=== PATIENT | male | born 1970 | race Two or more races ===

== ENCOUNTER 2017-06-10 19:40 | Inpatient (IN) | payer OTHER ==
[2017-06-10 20:16] VITALS: BMI 18.5
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
[2017-06-10] MEDS ORDERED: LOPERAMIDE HCL 2 MG CAPSULE PO PRN (20:48)
[2017-06-10] MEDS ORDERED: guaiFENesin/D-METHORPHAN HB 10 ML UNIT-DOSE CUPS PO PRN (20:48)
[2017-06-10] MEDS ORDERED: MENTHOL/PHENOL 1 EACH UD MM PRN (20:48)
[2017-06-10] MEDS ORDERED: IBUPROFEN 400 MG TABLET (FP) PO PRN (20:48)
[2017-06-10] MEDS ORDERED: NICOTINE POLACRILEX 2 MG GUM BC PRN (20:48)
[2017-06-10] MEDS ORDERED: ACETAMINOPHEN 325 MG TABLET (FP) PO PRN (20:48)
[2017-06-10] MEDS ORDERED: chlordiazePOXIDE HCL 25 MG CAPSULE PO ONE (20:48)
[2017-06-10] MEDS ORDERED: hydrOXYzine PAMOATE 50 MG CAPSULE (FP) PO PRN (20:48)
[2017-06-10] MEDS ORDERED: MAGNESIUM HYDROX 2400MG/30ML ORAL SUSPENSION 30 ML CUP PO PRN (20:48)
[2017-06-10] MEDS ORDERED: MAG HYDROX/AL HYDROX/SIMETH 30 ML UNIT-DOSE CUP PO PRN (20:48)
[2017-06-10] MEDS ORDERED: P-EPHED 60MG/TRIPROLIDI 2.5MG TABLET PO PRN (20:48)
[2017-06-10] MEDS ORDERED: chlordiazePOXIDE HCL 25 MG CAPSULE PO PRN (20:48)
[2017-06-10] MEDS ORDERED: MAGNESIUM CITRATE 300 ML BOTTLE PO PRN (20:48)
[2017-06-10] MEDS ORDERED: diphenhydrAMINE HCL 50 MG CAPSULE PO PRN (20:48)
[2017-06-10] MEDS: chlordiazePOXIDE HCL 25 MG CAPSULE PO SCH (22:42)
[2017-06-10] MEDS: THIAMINE HCL 100 MG TABLET (FP) PO SCH (22:44)
[2017-06-10 23:09] LABS: URINE APPEARANCE CLEAR; URINE BILIRUBIN NEGATIVE (NEGATIVE); URINE BLOOD NEGATIVE (NEGATIVE); URINE COLOR YELLOW; URINE GLUCOSE (UA) NEGATIVE (NEGATIVE); URINE KETONE NEGATIVE (NEGATIVE); URINE LEUK ESTERASE NEGATIVE (NEGATIVE); URINE NITRITE NEGATIVE (NEGATIVE); URINE PROTEIN NEGATIVE (NEGATIVE)
[2017-06-11] MEDS: chlordiazePOXIDE HCL 25 MG CAPSULE PO SCH ×4 (06:35→22:39)
[2017-06-11] MEDS: NICOTINE 21 MG/24 HOURS TOPICAL PATCH TD SCH (10:59)
[2017-06-11] MEDS: PRENATAL VITAMINS W/ FOLIC ACID TABLET (FP) PO SCH (10:59)
--- NOTE | 2017-06-11 12:12 | PN ---
[facility] CIWA - CIWA Score Nausea/Vomitin Muscle Tremors: 4-Moderate,w/Arms Extend Anxiety: 2 Agitation: 1-Slight > Activity Paroxysmal Sweats: 3 Orientation: 0-Oriented Tacttile Disturbances: 0-None Auditory Disturbances: 2-Mild Harshness/Frighten Visual Disturbances: 3-Moderate Sensitivity Headache: 0-None Present CIWA-Ar Total Score: 17 BHS Progress Note (SOAP) Subjective: Tremors, Sweating, Stomach Cramping, Diarrhea, Body Aches. Objective: PT. A & O X 3, OBSERVED AMBULATING ON UNIT. NO ACUTE DISTRESS. PT. DENIES CHEST PAIN. 06/11/17 12:10 Vital Signs Temperature 96.6 F L 06/11/17 09:50 Pulse Rate 52 L 06/11/17 09:50 Respiratory Rate 18 06/11/17 09:50 Blood Pressure 107/65 06/11/17 09:50 O2 Sat by Pulse Oximetry (%) Laboratory Tests 06/10/17 22:40 Urine Color Yellow Urine Appearance Clear Urine pH 6.0 Ur Specific [place] 1.015 Urine Protein Negative Urine Glucose (UA) Negative Urine Ketones Negative Urine Blood Negative Urine Nitrite Negative Urine Bilirubin Negative Urine Urobilinogen 2.0 Ur Leukocyte Esterase Negative LABS NOTED. PATIENT REFUSED TO HAVE CBC, CMP, RPR, HIV, AND HCV LAB TESTS DRAWN. WILL ENCOURAGE HIM TO RECONSIDER. 06/11/17 12:11 Assessment: 06/11/17 12:10 WITHDRAWAL SYMPTOMS. Plan: CONTINUE DETOX.
--- NOTE | 2017-06-11 12:44 | EKG ---
Test Reason : Blood Pressure : / mmHG Vent. Rate : 046 BPM Atrial Rate : 046 BPM P-R Int : 180 ms QRS Dur : 132 ms QT Int : 452 ms P-R-T Axes : 076 094 078 degrees QTc Int : 395 ms SINUS BRADYCARDIA RIGHT BUNDLE BRANCH BLOCK ABNORMAL ECG NO PREVIOUS ECGS AVAILABLE Confirmed by DILAN SMALLS, MEGHAN ([id number]) on 06/11/2017 12:43:54 PM Referred By: Confirmed By:MEGHAN KONG MD
--- NOTE | 2017-06-11 15:10 | CONSULT ---
[facility] Psychiatric Consult - Data Date of interview: 06/11/17 Admission source: [facility] Identifying data: Patient refused psychiatric evaluation.
[2017-06-11] MEDS: THIAMINE HCL 100 MG TABLET (FP) PO SCH (22:39)
[2017-06-12] MEDS: chlordiazePOXIDE HCL 25 MG CAPSULE PO SCH ×3 (05:45→17:25)
[2017-06-12] MEDS: PRENATAL VITAMINS W/ FOLIC ACID TABLET (FP) PO SCH (10:31)
[2017-06-12] MEDS: NICOTINE 21 MG/24 HOURS TOPICAL PATCH TD SCH (10:31)
--- NOTE | 2017-06-12 14:28 | PN ---
[facility] CIWA - CIWA Score Nausea/Vomitin-No Nausea/No Vomiting Muscle Tremors: 4-Moderate,w/Arms Extend Anxiety: 5 Agitation: 1-Slight > Activity Paroxysmal Sweats: 2 Orientation: 0-Oriented Tacttile Disturbances: 2-Mild Itch/Numbness/Burn Auditory Disturbances: 2-Mild Harshness/Frighten Visual Disturbances: 2-Mild Sensitivity Headache: 0-None Present CIWA-Ar Total Score: 18 S Progress Note (SOAP) Subjective: Tremors, Anxious, Fatigue. Objective: PT. A & O X 3, OBSERVED AMBULATING ON UNIT. NO ACUTE DISTRESS. 06/12/17 14:23 Vital Signs Temperature 98.1 F 06/12/17 09:17 Pulse Rate 68 06/12/17 09:17 Respiratory Rate 18 06/12/17 09:17 Blood Pressure 107/61 06/12/17 09:17 O2 Sat by Pulse Oximetry (%) Laboratory Tests 06/10/17 22:40 Urine Color Yellow Urine Appearance Clear Urine pH 6.0 Ur Specific [place] 1.015 Urine Protein Negative Urine Glucose (UA) Negative Urine Ketones Negative Urine Blood Negative Urine Nitrite Negative Urine Bilirubin Negative Urine Urobilinogen 2.0 Ur Leukocyte Esterase Negative UA RESULTS NOTED. PATIENT REFUSED TO HAVE OTHER ADMISSION LABS DRAWN, DESPITE ENCOURAGEMENT FROM [facility]. Assessment: 06/12/17 14:25 WITHDRAWAL SYMPTOMS. Plan: CONTINUE DETOX. ALSO RECEIVED REPORT FROM Amarjit DAVILA RN THAT PT. HAS BEEN REFUSING SCHEDULED DOSES OF DETOX LIBRIUM. PT. ENCOURAGED TO RESUME TAKING DETOX MEDS. IN ORDER TO ACHIEVE OPTIMAL BENEFIT FROM DETOX PROCESS. PT. VERBALIZED UNDERSTANDING OF RECOMMENDATION.
[2017-06-12 17:38] VITALS: BP 97/60; PULSE 62; TEMP 98
--- NOTE | 2017-06-12 18:53 | DS ---
[facility] Detox Discharge Summary Admission Date: 06/10/17 Discharge Date: 06/12/17 - History Present History: Alcohol Dependence, Cocaine Dependence Additional Comments: PATIENT DID NOT WISH TO STAY TO COMPLETE DETOX REGIMEN. PATIENT ADVISED TO GO IMMEDIATELY TO NEAREST ER SHOULD ANY INTOLERABLE DETOX SYMPTOMS DEVELOP AT ANY TIME. PATIENT LEFT UNIT IN STABLE MEDICAL CONDITION. Pertinent Past History: Asthma, Depression, Schizoaffective Disorder. - Physical Exam Results Vital Signs: Vital Signs Temperature 98.0 F 06/12/17 17:37 Pulse Rate 62 06/12/17 17:37 Respiratory Rate 18 06/12/17 17:37 Blood Pressure 97/60 06/12/17 17:37 O2 Sat by Pulse Oximetry (%) Pertinent Admission Physical Exam Findings: WITHDRAWAL SYMPTOMS. Laboratory Tests 06/10/17 22:40 Urine Color Yellow Urine Appearance Clear Urine pH 6.0 Ur Specific [place] 1.015 Urine Protein Negative Urine Glucose (UA) Negative Urine Ketones Negative Urine Blood Negative Urine Nitrite Negative Urine Bilirubin Negative Urine Urobilinogen 2.0 Ur Leukocyte Esterase Negative LABS NOTED. - Treatment Hospital Course: Detoxed Safely - Medication Discharge Medications: Ambulatory Orders NK [No Known Home Medication] 06/14/16 - Diagnosis (1) Underweight Status: Acute (2) Alcohol dependence with uncomplicated withdrawal Status: Acute (3) Asthma Status: Chronic Qualifiers: Asthma severity: mild intermittent Asthma complication type: uncomplicated Qualified Code(s): J45.20 - Mild intermittent asthma, uncomplicated (4) Cocaine dependence, uncomplicated Status: Chronic (5) Nicotine dependence Status: Chronic Qualifiers: Nicotine product type: cigarettes Substance use status: uncomplicated Qualified Code(s): F17.210 - Nicotine dependence, cigarettes, uncomplicated - AMA Did Patient Leave Against Medical Advice: Yes (PATIENT DID NOT WISH TO STAY TO COMPLETE DETOX REGIMEN.)
[2017-06-12] MEDS ORDERED: chlordiazePOXIDE 5 MG CAPSULE PO SCH (23:00)
[2017-06-13] MEDS ORDERED: chlordiazePOXIDE HCL 10 MG CAPSULE PO SCH (23:00)
== END 2017-06-12 06:35 | disposition left against medical advice (07) | DRG 770 ==
LOC: YASAS 19:40 → Y3N 21:22
PROVIDERS: ADMIT Internal Medicine Addiction Medicine; ATTEND Internal Medicine Addiction Medicine
PROC: HZ2ZZZZ Detoxification Services for Substance Abuse Treatment (ICD-10-PCS; principal; 2017-06-10)
DX: F10.230 Alcohol dependence with withdrawal, uncomplicated (principal); F14.20 Cocaine dependence, uncomplicated; F17.210 Nicotine dependence, cigarettes, uncomplicated; F19.24 Other psychoactive substance dependence with psychoactive substance-induced mood disorder; J45.20 Mild intermittent asthma, uncomplicated; R63.6 Underweight; Z88.6 Allergy status to analgesic agent; Z91.010 Allergy to peanuts; Z59.0 Homelessness
CPT/HCPCS: 81003; 93005; 93010

== ENCOUNTER 2017-10-12 16:49 | Inpatient (IN) | payer OTHER ==
[2017-10-12 17:51] VITALS: BMI 20.3
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
[2017-10-12] MEDS ORDERED: chlordiazePOXIDE HCL 25 MG CAPSULE PO PRN (18:30)
[2017-10-12] MEDS ORDERED: guaiFENesin/D-METHORPHAN HB 10 ML UNIT-DOSE CUPS PO PRN (18:30)
[2017-10-12] MEDS ORDERED: MAGNESIUM CITRATE 300 ML BOTTLE PO PRN (18:30)
[2017-10-12] MEDS ORDERED: LOPERAMIDE HCL 2 MG CAPSULE PO PRN (18:30)
[2017-10-12] MEDS ORDERED: ACETAMINOPHEN 325 MG TABLET (FP) PO PRN (18:30)
[2017-10-12] MEDS ORDERED: MAGNESIUM HYDROX 2400MG/30ML ORAL SUSPENSION 30 ML CUP PO PRN (18:30)
[2017-10-12] MEDS ORDERED: MAG HYDROX/AL HYDROX/SIMETH 30 ML UNIT-DOSE CUP PO PRN (18:30)
[2017-10-12] MEDS ORDERED: NICOTINE POLACRILEX 2 MG GUM BC PRN (18:30)
[2017-10-12] MEDS ORDERED: hydrOXYzine PAMOATE 50 MG CAPSULE (FP) PO PRN (18:30)
[2017-10-12] MEDS ORDERED: chlordiazePOXIDE HCL 25 MG CAPSULE PO ONE (18:30)
[2017-10-12] MEDS ORDERED: IBUPROFEN 400 MG TABLET (FP) PO PRN (18:30)
[2017-10-12] MEDS ORDERED: MENTHOL/PHENOL 1 EACH UD MM PRN (18:30)
[2017-10-12] MEDS ORDERED: P-EPHED 60MG/TRIPROLIDI 2.5MG TABLET PO PRN (18:30)
[2017-10-12] MEDS: NICOTINE 14 MG/24 HOURS TOPICAL PATCH TD SCH (18:57)
[2017-10-12] MEDS: THIAMINE HCL 100 MG TABLET (FP) PO SCH (22:14)
[2017-10-12] MEDS: chlordiazePOXIDE HCL 25 MG CAPSULE PO SCH (22:15)
[2017-10-12 22:54] LABS: URINE APPEARANCE CLEAR; URINE BILIRUBIN NEGATIVE (NEGATIVE); URINE BLOOD NEGATIVE (NEGATIVE); URINE COLOR YELLOW; URINE GLUCOSE (UA) NEGATIVE (NEGATIVE); URINE KETONE TRACE (NEGATIVE); URINE LEUK ESTERASE NEGATIVE (NEGATIVE); URINE NITRITE NEGATIVE (NEGATIVE)
[2017-10-12 22:58] LABS: URINE PROTEIN 1+ (NEGATIVE)
[2017-10-13] MEDS: chlordiazePOXIDE HCL 25 MG CAPSULE PO SCH ×3 (05:35→18:05)
[2017-10-13] MEDS: PRENATAL VITAMINS W/ FOLIC ACID TABLET (FP) PO SCH (11:04)
[2017-10-13] MEDS: NICOTINE 14 MG/24 HOURS TOPICAL PATCH TD SCH (11:04)
--- NOTE | 2017-10-13 11:52 | PN ---
S CIWA - CIWA Score Nausea/Vomitin Muscle Tremors: 3 Anxiety: 3 Agitation: 3 Paroxysmal Sweats: 1-Minimal Palms Moist Orientation: 0-Oriented Tacttile Disturbances: 1-Very Mild Itch/Numbness Auditory Disturbances: 1-Very Mild Visual Disturbances: 0-None Headache: 2-Mild CIWA-Ar Total Score: 17 BHS Progress Note (SOAP) Subjective: ALERT,IRRITABLE,ANXIOUS,INTERRUPTED SLEEP,TREMOR Objective: 10/13/17 11:50 Vital Signs Temperature 99.1 F 10/13/17 06:00 Pulse Rate 69 10/13/17 06:00 Respiratory Rate 18 10/13/17 06:00 Blood Pressure 79/41 10/13/17 06:00 O2 Sat by Pulse Oximetry (%) EKG NSR,RBBB NO CHEST PAIN,NO SOB,NO DIZZINESS Laboratory Last Values Urine Color Yellow 10/12/17 15:10 Urine Appearance Clear 10/12/17 15:10 Urine pH 5.0 (5.0-8.0) 10/12/17 15:10 Ur Specific [place] 1.029 (1.001-1.035) 10/12/17 15:10 Urine Protein 1+ (NEGATIVE) H 10/12/17 15:10 Urine Glucose (UA) Negative (NEGATIVE) 10/12/17 15:10 Urine Ketones Trace (NEGATIVE) H 10/12/17 15:10 Urine Blood Negative (NEGATIVE) 10/12/17 15:10 Urine Nitrite Negative (NEGATIVE) 10/12/17 15:10 Urine Bilirubin Negative (NEGATIVE) 10/12/17 15:10 Urine Urobilinogen 2.0 mg/dL (0.2-1.0) 10/12/17 15:10 Ur Leukocyte Esterase Negative (NEGATIVE) 10/12/17 15:10 LABS PENDING Assessment: 10/13/17 11:52 WITHDRAWAL SYMPTOM Plan: CONTINUE DETOX
--- NOTE | 2017-10-13 14:17 | EKG ---
Test Reason : Blood Pressure : / mmHG Vent. Rate : 086 BPM Atrial Rate : 086 BPM P-R Int : 154 ms QRS Dur : 112 ms QT Int : 364 ms P-R-T Axes : 072 089 073 degrees QTc Int : 435 ms NORMAL SINUS RHYTHM INCOMPLETE RIGHT BUNDLE BRANCH BLOCK BORDERLINE ECG WHEN COMPARED WITH ECG OF 16-AUG-2017 18:55, NO SIGNIFICANT CHANGE WAS FOUND BASELINE ARTIFACT Confirmed by ELIZABETH SMALLS, SIVAKUMAR ([id number]) on 10/13/2017 2:16:57 PM Referred By: Confirmed By:SIVAKUMAR JOHNSON MD
--- NOTE | 2017-10-13 17:18 | CONSULT ---
[facility] Psychiatric Consult - Data Date of interview: 10/13/16 Admission source: [facility] Identifying data: Pt. is a 47 year old male, single, without kids and currently unemployed. This is one of multiple admissions for patient. Pt. admitted to for alcohol, crack/cocaine, marijuana dependence. Substance Abuse History: Following information confirmed by Mr. Moctezumaiii: Medical History: Smoking Cessation. Smoking history: Current every day smoker. Have you smoked in the past 12 months: Yes. Aproximately how many cigarettes per day: 5. Hx Chewing Tobacco Use: No. Initiated information on smoking cessation: Yes. 'Breaking Loose' booklet given: 10/12/17. - Substance & Tx. History. Hx Alcohol Use: Yes. Hx Substance Use: Yes. Substance Use Type: Alcohol, Cocaine. Hx Substance Use Treatment: Yes ([facility] detox). - Substances Abused. Alcohol. Route: Oral. Frequency: Daily. Amount used: Rum 1/2 gallon, Beer 1(6pack). Age of first use: 19. Date of Last Use: 10/12/17. Cocaine. Route: Smoking. Frequency: Daily. Amount used: $100.00-200.00. Age of first use: 23. Date of Last Use: 10/12/17 Psychiatric History: Pt. denies h/o psychiatric hospitalization. States he used to see a psychiatrist 5 years ago at the [facility] and was prescribed prozac and abilify but has not taken any psychotrophic medications since then. States he has a diagnosis of schizoaffective. Pt denies h/o suicide attempts, suicidal/homicidal ideation. Physical/Sexual Abuse/Trauma History: Denies. Additional Comment: Urine Drug Screen Results: RAMILA-Cocaine Mental Status Exam - Mental Status Exam Alert and Oriented to: Time, Place, Person Cognitive Function: Good Patient Appearance: Unkempt Mood: Anxious Affect: Normal Range Patient Behavior: Appropriate, Cooperative Speech Pattern: Appropriate Voice Loudness: Moderately Soft/Quiet Thought Process: Goal Oriented Thought Disorder: Not Present Hallucinations: Denies Suicidal Ideation: Denies Homicidal Ideation: Denies Insight/Judgement: Poor Sleep: Fair Appetite: Fair Muscle strength/Tone: Normal Gait/Station: Normal Psychiatric Findings - Problem List ([place] 1, 2,3) (1) Alcohol dependence with uncomplicated withdrawal Current Visit: Yes Status: Acute (2) Cocaine dependence with withdrawal Current Visit: Yes Status: Acute (3) Cocaine dependence, uncomplicated Current Visit: Yes Status: Acute (4) Nicotine dependence Current Visit: Yes Status: Chronic Qualifiers: Nicotine product type: cigarettes Substance use status: in withdrawal Qualified Code(s): F17.213 - Nicotine dependence, cigarettes, with withdrawal (5) Schizoaffective disorder Current Visit: No Status: Suspected Comment: Self reports. - Initial Treatment Plan Initial Treatment Plan: Psychoeducation provided. Detoxification in progress. Observation.
[2017-10-13] MEDS: THIAMINE HCL 100 MG TABLET (FP) PO SCH (22:55)
[2017-10-14] MEDS: chlordiazePOXIDE HCL 25 MG CAPSULE PO SCH ×5 (00:03→16:58)
--- NOTE | 2017-10-14 10:16 | PN ---
[facility] CIWA - CIWA Score Nausea/Vomitin Muscle Tremors: 3 Anxiety: 3 Agitation: 2 Paroxysmal Sweats: 1-Minimal Palms Moist Orientation: 0-Oriented Tacttile Disturbances: 1-Very Mild Itch/Numbness Auditory Disturbances: 1-Very Mild Visual Disturbances: 0-None Headache: 2-Mild CIWA-Ar Total Score: 16 BHS Progress Note (SOAP) Subjective: ALERT,IRRITABLE,ANXIOUS,INTERRUPTED SLEEP,TREMOR Objective: 10/14/17 10:15 Vital Signs Temperature 98.1 F 10/14/17 07:51 Pulse Rate 74 10/14/17 07:51 Respiratory Rate 18 10/14/17 07:51 Blood Pressure 119/88 10/14/17 07:51 O2 Sat by Pulse Oximetry (%) LABS PENDING Assessment: 10/14/17 10:15 WITHDRAWAL SYMPTOM Plan: CONTINUE DETOX
[2017-10-14] MEDS: NICOTINE 14 MG/24 HOURS TOPICAL PATCH TD SCH (11:00)
[2017-10-14] MEDS: PRENATAL VITAMINS W/ FOLIC ACID TABLET (FP) PO SCH (11:00)
[2017-10-14] MEDS: chlordiazePOXIDE 5 MG CAPSULE PO SCH (22:45)
[2017-10-14] MEDS: THIAMINE HCL 100 MG TABLET (FP) PO SCH (22:46)
[2017-10-15] MEDS: chlordiazePOXIDE 5 MG CAPSULE PO SCH ×3 (06:00→22:04)
[2017-10-15] MEDS: PRENATAL VITAMINS W/ FOLIC ACID TABLET (FP) PO SCH (10:16)
[2017-10-15] MEDS: NICOTINE 14 MG/24 HOURS TOPICAL PATCH TD SCH (10:17)
--- NOTE | 2017-10-15 10:29 | PN ---
BHS Progress Note (SOAP) Subjective: ALERT,IRRITABLE,INTERRUPTED SLEEP,NON COMPLIANCE ISSUE,AGREED TO HAVE BLOOD TEST DONE AND TO COMPLY WITH UNIT RULE AND REGULATION Objective: 10/15/17 10:34 Vital Signs Temperature 98.1 F 10/14/17 22:47 Pulse Rate 80 10/14/17 22:47 Respiratory Rate 18 10/15/17 06:17 Blood Pressure 119/72 10/14/17 22:47 O2 Sat by Pulse Oximetry (%) LABS TEST WILL BE DONE TODAY Assessment: 10/15/17 10:35 WITHDRAWAL SYMPTOM Plan: CONTINUE DETOX,DISCHARGE IN AM
[2017-10-15 12:30] LABS: HEMATOCRIT 41.5 % (35.4-49); HEMOGLOBIN 13.2 GM/dL (11.7-16.9); MCH 30.2 pg (25.7-33.7); MCHC 31.7 g/dl (32.0-35.9); MEAN CELL VOLUME 95.1 fl (80-96); MEAN PLT VOLUME 9.1 fl (7.5-11.1); PLATELET COUNT 239 K/MM3 (134-434); RBC 4.36 M/mm3 (4.00-5.60); RDW 14.4 % (11.9-15.9); WHITE BLOOD COUNT 13.1 K/mm3 (4.0-10.0)
[2017-10-15 12:38] LABS: ALBUMIN 3.4 g/dl (3.4-5.0); ANION GAP 4 (8-16); BLOOD UREA NITROGEN 5 mg/dL (7-18); CALCIUM 8.5 mg/dL (8.5-10.1); CHLORIDE 105 mmol/L (98-107); CO2 31 mmol/L (21-32); GLUCOSE,RANDOM 86 mg/dL (74-106); POTASSIUM 4.3 mmol/L (3.5-5.1); SODIUM 140 mmol/L (136-145)
[2017-10-15 12:42] LABS: INR 0.95 (0.82-1.09); PROTHROMBIN TIME (PATIENT) 10.7 SEC (9.98-11.88)
[2017-10-15 12:43] LABS: ALK PHOS 94 U/L (45-117); BILIRUBIN,TOTAL 0.6 mg/dL (0.2-1.0); CREATININE 0.9 mg/dL (0.7-1.3); SGOT/AST 17 U/L (15-37); SGPT/ALT 35 U/L (12-78); TOT PROT 6.9 g/dl (6.4-8.2)
[2017-10-15] MEDS: THIAMINE HCL 100 MG TABLET (FP) PO SCH (22:12)
[2017-10-15] MEDS: chlordiazePOXIDE HCL 10 MG CAPSULE PO SCH (22:12)
[2017-10-15 22:18] VITALS: BP 126/66; PULSE 88; TEMP 98.2
[2017-10-16] MEDS: chlordiazePOXIDE HCL 10 MG CAPSULE PO SCH ×2 (06:01→11:47)
--- NOTE | 2017-10-16 09:25 | PN ---
S Progress Note (SOAP) Subjective: alert,no complaint Objective: 10/16/17 09:23 Vital Signs Temperature 98.2 F 10/15/17 22:18 Pulse Rate 88 10/15/17 22:18 Respiratory Rate 18 10/16/17 00:30 Blood Pressure 126/66 10/15/17 22:18 O2 Sat by Pulse Oximetry (%) Laboratory Last Values WBC 13.1 K/mm3 (4.0-10.0) H 10/15/17 10:55 RBC 4.36 M/mm3 (4.00-5.60) 10/15/17 10:55 Hgb 13.2 GM/dL (11.7-16.9) 10/15/17 10:55 Hct 41.5 % (35.4-49) 10/15/17 10:55 MCV 95.1 fl (80-96) 10/15/17 10:55 MCH 30.2 pg (25.7-33.7) 10/15/17 10:55 MCHC 31.7 g/dl (32.0-35.9) L 10/15/17 10:55 RDW 14.4 % (11.9-15.9) 10/15/17 10:55 Plt Count 239 K/MM3 (134-434) D 10/15/17 10:55 MPV 9.1 fl (7.5-11.1) 10/15/17 10:55 PT with INR 10.70 SEC (9.98-11.88) 10/15/17 10:55 INR 0.95 (0.82-1.09) 10/15/17 10:55 Sodium 140 mmol/L (136-145) 10/15/17 10:55 Potassium 4.3 mmol/L (3.5-5.1) 10/15/17 10:55 Chloride 105 mmol/L (98-107) 10/15/17 10:55 Carbon Dioxide 31 mmol/L (21-32) D 10/15/17 10:55 Anion Gap 4 (8-16) L 10/15/17 10:55 BUN 5 mg/dL (7-18) L D 10/15/17 10:55 Creatinine 0.9 mg/dL (0.7-1.3) 10/15/17 10:55 Creat Clearance w eGFR > 60 (>60) 10/15/17 10:55 Random Glucose 86 mg/dL (74-106) 10/15/17 10:55 Calcium 8.5 mg/dL (8.5-10.1) 10/15/17 10:55 Total Bilirubin 0.6 mg/dL (0.2-1.0) D 10/15/17 10:55 AST 17 U/L (15-37) D 10/15/17 10:55 ALT 35 U/L (12-78) D 10/15/17 10:55 Alkaline Phosphatase 94 U/L (45-117) 10/15/17 10:55 Total Protein 6.9 g/dl (6.4-8.2) 10/15/17 10:55 Albumin 3.4 g/dl (3.4-5.0) 10/15/17 10:55 Urine Color Yellow 10/12/17 15:10 Urine Appearance Clear 10/12/17 15:10 Urine pH 5.0 (5.0-8.0) 10/12/17 15:10 Ur Specific [place] 1.029 (1.001-1.035) 10/12/17 15:10 Urine Protein 1+ (NEGATIVE) H 10/12/17 15:10 Urine Glucose (UA) Negative (NEGATIVE) 10/12/17 15:10 Urine Ketones Trace (NEGATIVE) H 10/12/17 15:10 Urine Blood Negative (NEGATIVE) 10/12/17 15:10 Urine Nitrite Negative (NEGATIVE) 10/12/17 15:10 Urine Bilirubin Negative (NEGATIVE) 10/12/17 15:10 Urine Urobilinogen 2.0 mg/dL (0.2-1.0) 10/12/17 15:10 Ur Leukocyte Esterase Negative (NEGATIVE) 10/12/17 15:10 RPR Titer Nonreactive (NONREACTIVE) 10/15/17 10:55 HIV 1&2 Antibody Screen Negative 10/15/17 10:55 HIV P24 Antigen Negative 10/15/17 10:55 patient refused repeat cbc no complaint Assessment: 10/16/17 09:24 detox completed,no withdrawal symptom Plan: discharge today ,follow up with rehab
--- NOTE | 2017-10-16 09:28 | DS ---
[facility] Detox Discharge Summary Admission Date: 10/12/17 Discharge Date: 10/16/17 - History Present History: Alcohol Dependence, Cocaine Dependence Pertinent Past History: asthma - Physical Exam Results Vital Signs: Vital Signs Temperature 98.2 F 10/15/17 22:18 Pulse Rate 88 10/15/17 22:18 Respiratory Rate 18 10/16/17 00:30 Blood Pressure 126/66 10/15/17 22:18 O2 Sat by Pulse Oximetry (%) Pertinent Admission Physical Exam Findings: withdrawal symptom - Treatment Hospital Course: Detox Protocol Followed, Detoxed Safely, Responded well, Discharged Condition Good, Rehab Referral Accepted Patient has Accepted [facility] Ref[facility] - Medication Discharge Medications: Ambulatory Orders Albuterol Sulfate Inhaler - [Ventolin HFA Inhaler -] 2 puff IH Q4H PRN #1 inhaler 08/19/17 - Diagnosis (1) Alcohol dependence with uncomplicated withdrawal Current Visit: Yes Status: Acute (2) Cocaine dependence with withdrawal Current Visit: Yes Status: Acute (3) Cocaine dependence, uncomplicated Current Visit: Yes Status: Acute (4) Asthma Current Visit: Yes Status: Chronic Qualifiers: Asthma severity: mild Asthma persistence: intermittent Asthma complication type: uncomplicated Qualified Code(s): J45.20 - Mild intermittent asthma, uncomplicated - AMA Did Patient Leave Against Medical Advice: No
[2017-10-16] MEDS: PRENATAL VITAMINS W/ FOLIC ACID TABLET (FP) PO SCH (11:47)
[2017-10-16] MEDS: NICOTINE 14 MG/24 HOURS TOPICAL PATCH TD SCH (11:47)
== END 2017-10-16 12:13 | disposition other institution (70) | DRG 774 ==
LOC: YASAS 16:49 → Y6N 18:25
PROVIDERS: ADMIT Internal Medicine; ATTEND Internal Medicine
PROC: HZ2ZZZZ Detoxification Services for Substance Abuse Treatment (ICD-10-PCS; principal; 2017-10-12)
DX: F10.230 Alcohol dependence with withdrawal, uncomplicated (principal); F14.23 Cocaine dependence with withdrawal; F25.9 Schizoaffective disorder, unspecified; J45.20 Mild intermittent asthma, uncomplicated; I45.10 Unspecified right bundle-branch block; Z88.5 Allergy status to narcotic agent; Z91.010 Allergy to peanuts
CPT/HCPCS: 36415; 80053; 81003; 81015; 85027; 85610; 86593; 87389; 93005; 93010

== ENCOUNTER 2017-10-16 12:18 | Inpatient (IN) | payer OTHER ==
[2017-10-16] MEDS ORDERED: MAG HYDROX/AL HYDROX/SIMETH 30 ML UNIT-DOSE CUP PO PRN (12:56)
[2017-10-16] MEDS ORDERED: LOPERAMIDE HCL 2 MG CAPSULE PO PRN (12:56)
[2017-10-16] MEDS ORDERED: MENTHOL/PHENOL 1 EACH UD MM PRN (12:56)
[2017-10-16] MEDS ORDERED: ACETAMINOPHEN 325 MG TABLET (FP) PO PRN (12:56)
[2017-10-16] MEDS ORDERED: guaiFENesin/D-METHORPHAN HB 10 ML UNIT-DOSE CUPS PO PRN (12:56)
[2017-10-16] MEDS ORDERED: IBUPROFEN 400 MG TABLET (FP) PO PRN (12:56)
[2017-10-16] MEDS ORDERED: P-EPHED 60MG/TRIPROLIDI 2.5MG TABLET PO PRN (12:56)
[2017-10-16] MEDS ORDERED: MAGNESIUM HYDROX 2400MG/30ML ORAL SUSPENSION 30 ML CUP PO PRN (12:56)
[2017-10-16] MEDS ORDERED: MAGNESIUM CITRATE 300 ML BOTTLE PO PRN (12:56)
--- NOTE | 2017-10-16 12:56 | HP ---
[facility] Rehab Assess/Revision - Admission History Ad[facility] - Findings Detox History & Physical reviewed: Yes Concur with findings: Yes Inpatient Rehab Admission - Initial Determination Free of communicable disease: Yes - Rehab Admission Criteria Previous failed treatment: Yes Poor recovery environment: Yes Patient is meeting Inpatient Rehab admission criteria:: Yes
[2017-10-16] MEDS ORDERED: ALBUTEROL SO4 18 GM HFA INHALER IH PRN (12:58)
[2017-10-16] MEDS ORDERED: NICOTINE POLACRILEX 2 MG GUM BUC PRN (13:02)
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
[2017-10-16 14:17] VITALS: BP 124/66; PULSE 79; TEMP 98.8; BMI 20.3
[2017-10-16] MEDS ORDERED: THIAMINE HCL 100 MG TABLET (FP) PO SCH (22:00)
[2017-10-17] MEDS ORDERED: PRENATAL VITAMINS W/ FOLIC ACID TABLET (FP) PO SCH (10:00)
== END 2017-10-16 15:15 | disposition left against medical advice (07) | DRG 770 ==
LOC: YASAS 12:18 → Y3W 12:23
PROVIDERS: ADMIT Psychiatry & Neurology Psychiatry; ATTEND Psychiatry & Neurology Psychiatry
PROC: HZ42ZZZ Group Counseling for Substance Abuse Treatment, Cognitive-Behavioral (ICD-10-PCS; principal; 2017-10-16)
DX: F10.20 Alcohol dependence, uncomplicated (principal); F14.20 Cocaine dependence, uncomplicated; F25.9 Schizoaffective disorder, unspecified; J45.20 Mild intermittent asthma, uncomplicated; Z88.5 Allergy status to narcotic agent; Z91.010 Allergy to peanuts

== ENCOUNTER 2017-11-16 14:39 | Inpatient (IN) | payer OTHER ==
[2017-11-16 15:01] VITALS: BMI 21.2
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
[2017-11-16] MEDS ORDERED: MAGNESIUM HYDROX 2400MG/30ML ORAL SUSPENSION 30 ML CUP PO PRN (15:14)
[2017-11-16] MEDS ORDERED: hydrOXYzine PAMOATE 50 MG CAPSULE (FP) PO PRN (15:14)
[2017-11-16] MEDS ORDERED: MAGNESIUM CITRATE 300 ML BOTTLE PO PRN (15:14)
[2017-11-16] MEDS ORDERED: chlordiazePOXIDE HCL 25 MG CAPSULE PO PRN (15:14)
[2017-11-16] MEDS ORDERED: P-EPHED 60MG/TRIPROLIDI 2.5MG TABLET PO PRN (15:14)
[2017-11-16] MEDS ORDERED: MAG HYDROX/AL HYDROX/SIMETH 30 ML UNIT-DOSE CUP PO PRN (15:14)
[2017-11-16] MEDS ORDERED: MENTHOL/PHENOL 1 EACH UD MM PRN (15:14)
[2017-11-16] MEDS ORDERED: guaiFENesin/D-METHORPHAN HB 10 ML UNIT-DOSE CUPS PO PRN (15:14)
[2017-11-16] MEDS ORDERED: LOPERAMIDE HCL 2 MG CAPSULE PO PRN (15:14)
[2017-11-16] MEDS ORDERED: IBUPROFEN 400 MG TABLET (FP) PO PRN (15:14)
[2017-11-16] MEDS ORDERED: ACETAMINOPHEN 325 MG TABLET (FP) PO PRN (15:14)
[2017-11-16] MEDS ORDERED: ALBUTEROL SO4 18 GM HFA INHALER IH PRN (15:39)
[2017-11-16] MEDS ORDERED: chlordiazePOXIDE HCL 25 MG CAPSULE PO ONE (16:30)
[2017-11-16] MEDS: NICOTINE 14 MG/24 HOURS TOPICAL PATCH TD SCH (17:36)
[2017-11-16 19:47] LABS: URINE APPEARANCE CLEAR; URINE BILIRUBIN NEGATIVE (NEGATIVE); URINE BLOOD NEGATIVE (NEGATIVE); URINE COLOR YELLOW; URINE GLUCOSE (UA) NEGATIVE (NEGATIVE); URINE KETONE NEGATIVE (NEGATIVE); URINE LEUK ESTERASE NEGATIVE (NEGATIVE); URINE NITRITE NEGATIVE (NEGATIVE); URINE PROTEIN NEGATIVE (NEGATIVE); URINE UROBILINOGEN 4.0 E.U/dl mg/dL (0.2-1.0)
[2017-11-16] MEDS: THIAMINE HCL 100 MG TABLET (FP) PO SCH (22:59)
[2017-11-16] MEDS: chlordiazePOXIDE HCL 25 MG CAPSULE PO SCH (22:59)
[2017-11-17] MEDS: chlordiazePOXIDE HCL 25 MG CAPSULE PO SCH ×4 (07:27→22:22)
[2017-11-17] MEDS: NICOTINE 14 MG/24 HOURS TOPICAL PATCH TD SCH (10:48)
[2017-11-17] MEDS: PRENATAL VITAMINS W/ FOLIC ACID TABLET (FP) PO SCH (10:48)
--- NOTE | 2017-11-17 12:40 | PN ---
S CIWA - CIWA Score Nausea/Vomitin Muscle Tremors: 3 Anxiety: 3 Agitation: 3 Paroxysmal Sweats: 2 Orientation: 0-Oriented Tacttile Disturbances: 0-None Auditory Disturbances: 0-None Visual Disturbances: 0-None Headache: 0-None Present CIWA-Ar Total Score: 14 BHS Progress Note (SOAP) Subjective: shaking diarrhea weak Objective: 11/17/17 12:38 In bed, A & O x 3 No acute distress Vital Signs Temperature 98.1 F 11/17/17 09:14 Pulse Rate 61 11/17/17 09:14 Respiratory Rate 18 11/17/17 09:14 Blood Pressure 81/50 11/17/17 09:14 O2 Sat by Pulse Oximetry (%) Laboratory Last Values Urine Color Yellow 11/16/17 18:36 Urine Appearance Clear 11/16/17 18:36 Urine pH 6.0 (5.0-8.0) 11/16/17 18:36 Ur Specific [place] 1.015 (1.001-1.035) 11/16/17 18:36 Urine Protein Negative (NEGATIVE) 11/16/17 18:36 Urine Glucose (UA) Negative (NEGATIVE) 11/16/17 18:36 Urine Ketones Negative (NEGATIVE) 11/16/17 18:36 Urine Blood Negative (NEGATIVE) 11/16/17 18:36 Urine Nitrite Negative (NEGATIVE) 11/16/17 18:36 Urine Bilirubin Negative (NEGATIVE) 11/16/17 18:36 Urine Urobilinogen 4.0 e.u/dl mg/dL (0.2-1.0) 11/16/17 18:36 Ur Leukocyte Esterase Negative (NEGATIVE) 11/16/17 18:36 noted Assessment: 11/17/17 12:39 withdrawal sx Plan: continue detox
--- NOTE | 2017-11-17 12:53 | EKG ---
Test Reason : Blood Pressure : / mmHG Vent. Rate : 063 BPM Atrial Rate : 063 BPM P-R Int : 174 ms QRS Dur : 122 ms QT Int : 420 ms P-R-T Axes : 073 093 063 degrees QTc Int : 429 ms NORMAL SINUS RHYTHM INCOMPLETE RIGHT BUNDLE BRANCH BLOCK BORDERLINE ECG WHEN COMPARED WITH ECG OF 12-OCT-2017 19:07, NO SIGNIFICANT CHANGE WAS FOUND Confirmed by VALDO ALLEN MD ([id number]) on 11/17/2017 12:53:01 PM Referred By: Jaime Roth Confirmed By:VALDO ALLEN MD
--- NOTE | 2017-11-17 14:17 | CONSULT ---
[facility] Psychiatric Consult - Data Date of interview: 11/17/17 Admission source: [facility] Identifying data: Patient is approached at bedside for psychiatric interview.Response : " Leave me alone.Out of my room.I have nothing to say to psychiatrists.I don't need your services." Nursing staff is made aware.
[2017-11-17] MEDS: THIAMINE HCL 100 MG TABLET (FP) PO SCH (22:22)
[2017-11-18] MEDS: chlordiazePOXIDE HCL 25 MG CAPSULE PO SCH ×3 (05:51→17:50)
[2017-11-18] MEDS ORDERED: diphenhydrAMINE HCL 50 MG CAPSULE PO PRN (09:20)
[2017-11-18] MEDS ORDERED: CYCLOBENZAPRINE HCL 10 MG TABLET (FP) PO PRN (09:21)
[2017-11-18] MEDS: NICOTINE 14 MG/24 HOURS TOPICAL PATCH TD SCH (10:43)
[2017-11-18] MEDS: PRENATAL VITAMINS W/ FOLIC ACID TABLET (FP) PO SCH (11:44)
--- NOTE | 2017-11-18 12:55 | PN ---
[facility] CIWA - CIWA Score Nausea/Vomitin-No Nausea/No Vomiting Muscle Tremors: 3 Anxiety: 4-Mod. Anxious/Guarded Agitation: 0-Normal Activity Paroxysmal Sweats: 3 Orientation: 0-Oriented Tacttile Disturbances: 2-Mild Itch/Numbness/Burn Auditory Disturbances: 1-Very Mild Visual Disturbances: 3-Moderate Sensitivity Headache: 0-None Present CIWA-Ar Total Score: 16 BHS Progress Note (SOAP) Subjective: Body Aches, Sweating, Diarrhea, Tremors, Interrupted Sleep. Objective: PT. A & O X 3. NO ACUTE DISTRESS. 11/18/17 12:53 Vital Signs Temperature 97.3 F L 11/18/17 06:33 Pulse Rate 66 11/18/17 06:33 Respiratory Rate 18 11/18/17 06:33 Blood Pressure 93/56 11/18/17 06:33 O2 Sat by Pulse Oximetry (%) Laboratory Tests 11/16/17 18:36 Urine Color Yellow Urine Appearance Clear Urine pH 6.0 Ur Specific [place] 1.015 Urine Protein Negative Urine Glucose (UA) Negative Urine Ketones Negative Urine Blood Negative Urine Nitrite Negative Urine Bilirubin Negative Urine Urobilinogen 4.0 e.u/dl Ur Leukocyte Esterase Negative UA RESULTS NOTED. PATIENT REFUSED TO HAVE OTHER ADMISSION LABS DRAWN. 11/18/17 12:53 Assessment: 11/18/17 12:54 WITHDRAWAL SYMPTOMS. Plan: CONTINUE DETOX. INCREASE DAILY PO FLUID INTAKE.
[2017-11-18] MEDS: chlordiazePOXIDE 5 MG CAPSULE PO SCH (22:25)
[2017-11-18] MEDS: THIAMINE HCL 100 MG TABLET (FP) PO SCH (22:26)
[2017-11-19] MEDS: chlordiazePOXIDE 5 MG CAPSULE PO SCH ×2 (06:18→12:29)
[2017-11-19 09:00] VITALS: BP 107/64; PULSE 65; TEMP 97.4
[2017-11-19] MEDS: PRENATAL VITAMINS W/ FOLIC ACID TABLET (FP) PO SCH (12:29)
[2017-11-19] MEDS: NICOTINE 14 MG/24 HOURS TOPICAL PATCH TD SCH (12:29)
--- NOTE | 2017-11-19 15:16 | DS ---
[facility] Detox Discharge Summary Admission Date: 11/16/17 Discharge Date: 11/19/17 - History Present History: Alcohol Dependence, Cannabis Dependence, Cocaine Dependence Additional Comments: PATIENT DOES NOT WISH TO STAY TO COMPLETE DETOX REGIMEN. RISKS OF LEAVING DETOX UNIT AGAINST MEDICAL ADVICE AND PRIOR TO COMPLETION OF DETOX REGIMEN DISCUSSED WITH PATIENT. PATIENT ADVISED TO GO IMMEDIATELY TO NEAREST ER SHOULD ANY INTOLERABLE DETOX SYMPTOMS DEVELOP AT ANY TIME. PATIENT LEFT DETOX UNIT IN STABLE MEDICAL CONDITION. Pertinent Past History: Asthma, Schizoaffective Disorder, Underweight, Nicotine Dependence. - Physical Exam Results Vital Signs: Vital Signs Temperature 97.4 F L 11/19/17 08:59 Pulse Rate 65 11/19/17 08:59 Respiratory Rate 18 11/19/17 08:59 Blood Pressure 107/64 11/19/17 08:59 O2 Sat by Pulse Oximetry (%) Pertinent Admission Physical Exam Findings: WITHDRAWAL SYMPTOMS. Laboratory Tests 11/16/17 18:36 Urine Color Yellow Urine Appearance Clear Urine pH 6.0 Ur Specific [place] 1.015 Urine Protein Negative Urine Glucose (UA) Negative Urine Ketones Negative Urine Blood Negative Urine Nitrite Negative Urine Bilirubin Negative Urine Urobilinogen 4.0 e.u/dl Ur Leukocyte Esterase Negative UA RESULTS NOTED. PATIENT REFUSED TO HAVE OTHER ADMISSION LABS DRAWN. - Treatment Hospital Course: Detoxed Safely - Medication Discharge Medications: Ambulatory Orders Albuterol Sulfate Inhaler - [Ventolin HFA Inhaler -] 2 puff IH Q4H PRN #1 inhaler 10/16/17 - Diagnosis (1) Cannabis dependence Status: Acute (2) Alcohol dependence with uncomplicated withdrawal Status: Acute (3) Cocaine dependence with withdrawal Status: Acute (4) Asthma Status: Chronic Qualifiers: Asthma severity: mild Asthma persistence: intermittent Asthma complication type: uncomplicated Qualified Code(s): J45.20 - Mild intermittent asthma, uncomplicated (5) Nicotine dependence Status: Chronic Qualifiers: Nicotine product type: cigarettes Substance use status: in withdrawal Qualified Code(s): F17.213 - Nicotine dependence, cigarettes, with withdrawal (6) Schizoaffective disorder Status: Chronic Qualifiers: Schizoaffective disorder type: unspecified Qualified Code(s): F25.9 - Schizoaffective disorder, unspecified (7) Underweight Status: Chronic - AMA Did Patient Leave Against Medical Advice: Yes (PATIENT DOES NOT WISH TO STAY TO COMPLETE DETOX REGIMEN.)
[2017-11-19] MEDS ORDERED: chlordiazePOXIDE HCL 10 MG CAPSULE PO SCH (23:00)
== END 2017-11-19 02:10 | disposition left against medical advice (07) | DRG 770 ==
LOC: YASAS 14:39 → Y3N 16:23
PROVIDERS: ADMIT Internal Medicine; ATTEND Internal Medicine
PROC: HZ2ZZZZ Detoxification Services for Substance Abuse Treatment (ICD-10-PCS; principal; 2017-11-16)
DX: F10.230 Alcohol dependence with withdrawal, uncomplicated (principal); F14.20 Cocaine dependence, uncomplicated; F12.20 Cannabis dependence, uncomplicated; F17.213 Nicotine dependence, cigarettes, with withdrawal; F25.9 Schizoaffective disorder, unspecified; J45.20 Mild intermittent asthma, uncomplicated; R63.6 Underweight; Z68.21 Body mass index [BMI] 21.0-21.9, adult; Z91.010 Allergy to peanuts; Z88.6 Allergy status to analgesic agent
CPT/HCPCS: 81003; 93005; 93010

== ENCOUNTER 2018-01-11 14:01 | Inpatient (IN) | payer OTHER ==
[2018-01-11 15:31] VITALS: BMI 21.2
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
[2018-01-11] MEDS ORDERED: IBUPROFEN 400 MG TABLET (FP) PO PRN (16:06)
[2018-01-11] MEDS ORDERED: MAG HYDROX/AL HYDROX/SIMETH 30 ML UNIT-DOSE CUP PO PRN (16:06)
[2018-01-11] MEDS ORDERED: hydrOXYzine PAMOATE 25 MG CAPSULE (FP) PO PRN (16:06)
[2018-01-11] MEDS ORDERED: guaiFENesin/D-METHORPHAN HB 10 ML UNIT-DOSE CUPS PO PRN (16:06)
[2018-01-11] MEDS ORDERED: MAGNESIUM HYDROX 2400MG/30ML ORAL SUSPENSION 30 ML CUP PO PRN (16:06)
[2018-01-11] MEDS ORDERED: ACETAMINOPHEN 325 MG TABLET (FP) PO PRN (16:06)
[2018-01-11] MEDS ORDERED: LOPERAMIDE HCL 2 MG CAPSULE PO PRN (16:06)
[2018-01-11] MEDS ORDERED: P-EPHED 60MG/TRIPROLIDI 2.5MG TABLET PO PRN (16:06)
[2018-01-11] MEDS ORDERED: chlordiazePOXIDE HCL 25 MG CAPSULE PO PRN (16:06)
[2018-01-11] MEDS ORDERED: chlordiazePOXIDE HCL 25 MG CAPSULE PO ONE (16:06)
[2018-01-11] MEDS ORDERED: MAGNESIUM CITRATE 300 ML BOTTLE PO PRN (16:06)
[2018-01-11] MEDS ORDERED: MENTHOL/PHENOL 1 EACH UD MM PRN (16:06)
[2018-01-11] MEDS ORDERED: ALBUTEROL SO4 18 GM HFA INHALER IH PRN (16:09)
[2018-01-11] MEDS ORDERED: chlordiazePOXIDE HCL 25 MG CAPSULE ONE (18:45)
[2018-01-11] MEDS: NICOTINE 21 MG/24 HOURS TOPICAL PATCH TD SCH ×2 (18:51→19:14)
[2018-01-11] MEDS ORDERED: MELATONIN 5 MG TABLETS PO PRN (22:00)
[2018-01-11] MEDS: chlordiazePOXIDE HCL 25 MG CAPSULE PO SCH (22:38)
[2018-01-11] MEDS: THIAMINE HCL 100 MG TABLET (FP) PO SCH (22:38)
[2018-01-12] MEDS: chlordiazePOXIDE HCL 25 MG CAPSULE PO SCH ×4 (05:55→22:16)
[2018-01-12] MEDS ORDERED: PRENATAL VITAMINS W/ FOLIC ACID TABLET (FP) PO SCH (10:00)
--- NOTE | 2018-01-12 11:28 | EKG ---
Test Reason : Blood Pressure : / mmHG Vent. Rate : 058 BPM Atrial Rate : 058 BPM P-R Int : 168 ms QRS Dur : 126 ms QT Int : 420 ms P-R-T Axes : 071 089 071 degrees QTc Int : 412 ms SINUS BRADYCARDIA WITH SINUS ARRHYTHMIA RIGHT BUNDLE BRANCH BLOCK ABNORMAL ECG WHEN COMPARED WITH ECG OF 16-NOV-2017 17:17, RIGHT BUNDLE BRANCH BLOCK HAS REPLACED NON-SPECIFIC INTRA-VENTRICULAR CONDUCTION DELAY Confirmed by ALMITA BHANDARI MD ([id number]) on 01/12/2018 11:28:14 AM Referred By: Confirmed By:ALMITA BHANDARI MD
[2018-01-12] MEDS: NICOTINE 21 MG/24 HOURS TOPICAL PATCH TD SCH (11:50)
--- NOTE | 2018-01-12 15:58 | PN ---
[facility] CIWA - CIWA Score Nausea/Vomitin-No Nausea/No Vomiting Muscle Tremors: None Anxiety: 4-Mod. Anxious/Guarded Agitation: 2 Paroxysmal Sweats: 3 Orientation: 0-Oriented Tacttile Disturbances: 3-Moderate Itch/Numb/Burn Auditory Disturbances: 1-Very Mild Visual Disturbances: 3-Moderate Sensitivity Headache: 0-None Present CIWA-Ar Total Score: 16 BHS Progress Note (SOAP) Subjective: Anxious, Fatigue, Sweating, Diarrhea. Objective: PATIENT A & O X 3. NO ACUTE DISTRESS. 01/12/18 15:56 Vital Signs Temperature 97.6 F 01/12/18 13:15 Pulse Rate 71 01/12/18 13:15 Respiratory Rate 18 01/12/18 13:15 Blood Pressure 95/53 01/12/18 13:15 O2 Sat by Pulse Oximetry (%) PATIENT REFUSED ADMISSION LABS EARLIER THIS AM BUT IS WILLING TO ALLOW TO HAVE DONE TOMORROW AM. [id number]. Assessment: 01/12/18 15:58 WITHDRAWAL SYMPTOMS. Plan: CONTINUE DETOX. INCREASE DAILY PO FLUID INTAKE. PRN IMMODIUM FOR DIARRHEA. ENCOURAGE AMBULATION.
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
[2018-01-12] MEDS: THIAMINE HCL 100 MG TABLET (FP) PO SCH (22:16)
[2018-01-13 06:20] VITALS: BP 101/58; PULSE 62; TEMP 96.9
[2018-01-13] MEDS: chlordiazePOXIDE HCL 25 MG CAPSULE PO SCH (06:21)
--- NOTE | 2018-01-13 07:35 | PN ---
[facility] Progress Note Note: INFORMED CLIENT HAS BEEN REFUSING ALL CARE TO INCLUDE DETOX REGIMEN, PSYCH SERVICES, AND LABS. ROOM NOTED, MALODOROUS , UNKEPT. Vital Signs Temperature 96.9 F L 01/13/18 06:19 Pulse Rate 62 01/13/18 06:19 Respiratory Rate 18 01/13/18 06:30 Blood Pressure 101/58 01/13/18 06:19 O2 Sat by Pulse Oximetry (%) A/O X3 NAD RETAIL STORE CLERK ATTEMPTED TO SPEAK WITH CLIENT; CLIENT TURNED HIS BACK TO RETAIL STORE CLERK NO WITHDRAWAL SXS' REPORTED/ NOTED CLIENT IS MEDICALLY STABLE FOR DC ; NOT NOT MEET CRITERIA FOR DETOX ADMINISTRATIVE DC INFORMED CLIENT HE MAY FOLLOW UP WITH REHAB OR OUT PATIENT SERVICES NOTE: ALSO REPORTED/NOTED TO REFUSE ALL SERVICES ON PREVIOUS ADMISSION
--- NOTE | 2018-01-13 08:03 | DS ---
[facility] Detox Discharge Summary Admission Date: 01/11/18 Discharge Date: 01/13/18 - History Present History: Alcohol Dependence, Cannabis Dependence, Cocaine Dependence Pertinent Past History: ASTHMA NICOTINE DEPENDENCE - Physical Exam Results Vital Signs: Vital Signs Temperature 96.9 F L 01/13/18 06:19 Pulse Rate 62 01/13/18 06:19 Respiratory Rate 18 01/13/18 06:30 Blood Pressure 101/58 01/13/18 06:19 O2 Sat by Pulse Oximetry (%) Pertinent Admission Physical Exam Findings: CIWA 20 - Treatment Hospital Course: Discharged Condition Good - Medication Discharge Medications: Ambulatory Orders Albuterol Sulfate Inhaler - [Ventolin HFA Inhaler -] 2 puff IH Q4H PRN #1 inhaler 10/16/17 - AMA Did Patient Leave Against Medical Advice: No (ADMINISTRATIVE DC FOR NON COMPLAINCE )
[2018-01-13] MEDS ORDERED: chlordiazePOXIDE 5 MG CAPSULE PO SCH (23:00)
[2018-01-14] MEDS ORDERED: chlordiazePOXIDE HCL 10 MG CAPSULE PO SCH (23:00)
== END 2018-01-13 09:26 | disposition left against medical advice (07) | DRG 774 ==
LOC: YASAS 14:01 → Y3N 17:44
PROVIDERS: ADMIT Internal Medicine; ATTEND Internal Medicine
PROC: HZ2ZZZZ Detoxification Services for Substance Abuse Treatment (ICD-10-PCS; principal; 2018-01-11)
DX: F10.230 Alcohol dependence with withdrawal, uncomplicated (principal); F14.20 Cocaine dependence, uncomplicated; F12.20 Cannabis dependence, uncomplicated; F17.210 Nicotine dependence, cigarettes, uncomplicated; F19.24 Other psychoactive substance dependence with psychoactive substance-induced mood disorder; F25.9 Schizoaffective disorder, unspecified; G47.00 Insomnia, unspecified; J45.909 Unspecified asthma, uncomplicated; Z91.138 Patient's unintentional underdosing of medication regimen for other reason
CPT/HCPCS: 93005; 93010

== ENCOUNTER 2018-05-30 15:29 | Inpatient (IN) | payer OTHER ==
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
[2018-05-30] MEDS ORDERED: MENTHOL/PHENOL 1 EACH UD MM PRN (17:45)
[2018-05-30] MEDS ORDERED: ACETAMINOPHEN 325 MG TABLET (FP) PO PRN (17:45)
[2018-05-30] MEDS ORDERED: IBUPROFEN 400 MG TABLET (FP) PO PRN (17:45)
[2018-05-30] MEDS ORDERED: MAGNESIUM HYDROX 2400MG/30ML ORAL SUSPENSION 30 ML CUP PO PRN (17:45)
[2018-05-30] MEDS ORDERED: LOPERAMIDE HCL 2 MG CAPSULE PO PRN (17:45)
[2018-05-30] MEDS ORDERED: hydrOXYzine PAMOATE 50 MG CAPSULE (FP) PO PRN (17:45)
[2018-05-30] MEDS ORDERED: MAG HYDROX/AL HYDROX/SIMETH 30 ML UNIT-DOSE CUP PO PRN (17:45)
[2018-05-30] MEDS ORDERED: MAGNESIUM CITRATE 300 ML BOTTLE PO PRN (17:45)
[2018-05-30] MEDS ORDERED: chlordiazePOXIDE HCL 25 MG CAPSULE PO PRN (17:45)
[2018-05-30] MEDS ORDERED: guaiFENesin/D-METHORPHAN HB 10 ML UNIT-DOSE CUPS PO PRN (17:45)
[2018-05-30] MEDS ORDERED: P-EPHED 60MG/TRIPROLIDI 2.5MG TABLET PO PRN (17:45)
[2018-05-30] MEDS ORDERED: ALBUTEROL SO4 8 GM HFA INHALER IH PRN (17:48)
[2018-05-30] MEDS: NICOTINE 21 MG/24 HOURS TOPICAL PATCH TD SCH (18:34)
[2018-05-30] MEDS ORDERED: MELATONIN 5 MG TABLETS PO PRN (22:00)
[2018-05-30] MEDS: chlordiazePOXIDE HCL 25 MG CAPSULE PO SCH (23:55)
[2018-05-30] MEDS: THIAMINE HCL 100 MG TABLET (FP) PO SCH (23:56)
[2018-05-31] MEDS: chlordiazePOXIDE HCL 25 MG CAPSULE PO SCH ×4 (06:43→22:44)
[2018-05-31 10:17] LABS: HEMATOCRIT 39.2 % (35.4-49); HEMOGLOBIN 13.2 GM/dL (11.7-16.9); MCH 31.5 pg (25.7-33.7); MCHC 33.8 g/dl (32.0-35.9); MEAN CELL VOLUME 93.2 fl (80-96); MEAN PLT VOLUME 8.8 fl (7.5-11.1); PLATELET COUNT 268 K/MM3 (134-434); RDW 14.7 % (11.9-15.9); WHITE BLOOD COUNT 12.8 K/mm3 (4.0-10.0)
[2018-05-31 10:28] LABS: URINE APPEARANCE TURBID; URINE BILIRUBIN NEGATIVE (<2.0 mg/dL); URINE COLOR YELLOW; URINE GLUCOSE (UA) NEGATIVE (NEGATIVE); URINE KETONE TRACE (NEGATIVE); URINE LEUK ESTERASE NEGATIVE (NEGATIVE); URINE NITRITE NEGATIVE (NEGATIVE); URINE PROTEIN NEGATIVE (NEGATIVE); URINE UROBILINOGEN 4.0 E.U/dl mg/dL (0.2-1.0)
[2018-05-31 10:28] LABS: CHLORIDE 110 mmol/L (98-107); POTASSIUM 4.6 mmol/L (3.5-5.1); SODIUM 144 mmol/L (136-145)
[2018-05-31 10:37] LABS: ALBUMIN 3.2 g/dl (3.4-5.0); ALK PHOS 81 U/L (45-117); ANION GAP 9 (8-16); BILIRUBIN,TOTAL 0.6 mg/dL (0.2-1.0); BLOOD UREA NITROGEN 14 mg/dL (7-18); CALCIUM 8.8 mg/dL (8.5-10.1); CO2 25 mmol/L (21-32); GLUCOSE,RANDOM 77 mg/dL (74-106); SGOT/AST 9 U/L (15-37); SGPT/ALT 19 U/L (12-78); TOT PROT 6.3 g/dl (6.4-8.2)
[2018-05-31] MEDS: PRENATAL VITAMINS W/ FOLIC ACID TABLET (FP) PO SCH (11:03)
[2018-05-31] MEDS: NICOTINE 21 MG/24 HOURS TOPICAL PATCH TD SCH (11:05)
--- NOTE | 2018-05-31 12:01 | CONSULT ---
[facility] Psychiatric Consult - Data Date of interview: 05/31/18 Admission source: Self-referred Identifying data: 47 y/o male single, unemployed, no children domiciled, SSI recipient Substance Abuse History: This is one of his multiple Detox admissions due to alcohol, cocaine and nicotine abuse. Please refer to addiction counselor note for more detailed drug history Medical History: His medical history is significant for Asthma. History of abdominal surgery during his teenage years secindary to [facility] Psychiatric History: Patient denies psychiatric history. His records indcate that he suffered from Schjzo affective disorder, he is non compliant with his treatment and has been medicated with Abilify and Prozac. Patient currently denies feeling depressed oe anxious, denies psychosis or mood swings denies suicidal or homicidal ideation Physical/Sexual Abuse/Trauma History: denied Mental Status Exam - Mental Status Exam Alert and Oriented to: Place, Person Cognitive Function: Fair Patient Appearance: Unkempt Mood: Euthymic Affect: Appropriate Patient Behavior: Cooperative Speech Pattern: Appropriate Voice Loudness: Normal Thought Process: Intact Thought Disorder: Not Present Hallucinations: None Suicidal Ideation: None Homicidal Ideation: None Insight/Judgement: Poor Sleep: Fair Appetite: Good Muscle strength/Tone: Normal Gait/Station: Normal Psychiatric Findings - Problem List ([place] 1, 2,3) (1) Anxiety and depression Current Visit: Yes Status: Acute (2) Alcohol dependence Current Visit: No Status: Acute (3) Alcohol dependence with uncomplicated withdrawal Current Visit: No Status: Acute (4) Cannabis dependence Current Visit: No Status: Acute (5) Insomnia Current Visit: No Status: Acute Comment: Patient is in bed virtually all day long.Totally not receptive to principles of sleep hygiene and hostile to hypnotic drugs. (6) Substance induced mood disorder Current Visit: No Status: Acute (7) Asthma Current Visit: No Status: Chronic Qualifiers: Asthma severity: mild Asthma persistence: intermittent Asthma complication type: uncomplicated Qualified Code(s): J45.20 - Mild intermittent asthma, uncomplicated (8) Opiate abuse, episodic Current Visit: No Status: Chronic - Initial Treatment Plan Initial Treatment Plan: Continue detox treatment. <omitor response
--- NOTE | 2018-05-31 18:18 | PN ---
[facility] CIWA - CIWA Score Nausea/Vomitin-Mild Nausea/No Vomiting Muscle Tremors: 1-None Visible, but [place] Anxiety: 1-Mildly Anxious Agitation: 0-Normal Activity Paroxysmal Sweats: No Perspiration Orientation: 0-Oriented Tacttile Disturbances: 0-None Auditory Disturbances: 0-None Visual Disturbances: 0-None Headache: 0-None Present CIWA-Ar Total Score: 3 BHS Progress Note (SOAP) Subjective: Mild nausea. Tolerating diet. Mild anxiety but feeling better. Objective: Scored 3 on CIWA. Alert and oriented x 3. Lungs CTA. Abdomen soft and non- tender. Hyperactive bowel sounds. Mild tremors of hands. Laboratory Last Values WBC 12.8 K/mm3 (4.0-10.0) H 05/31/18 07:20 RBC 4.20 M/mm3 (4.00-5.60) 05/31/18 07:20 Hgb 13.2 GM/dL (11.7-16.9) 05/31/18 07:20 Hct 39.2 % (35.4-49) 05/31/18 07:20 MCV 93.2 fl (80-96) 05/31/18 07:20 MCH 31.5 pg (25.7-33.7) 05/31/18 07:20 MCHC 33.8 g/dl (32.0-35.9) 05/31/18 07:20 RDW 14.7 % (11.9-15.9) 05/31/18 07:20 Plt Count 268 K/MM3 (134-434) 05/31/18 07:20 MPV 8.8 fl (7.5-11.1) 05/31/18 07:20 Sodium 144 mmol/L (136-145) 05/31/18 07:20 Potassium 4.6 mmol/L (3.5-5.1) 05/31/18 07:20 Chloride 110 mmol/L (98-107) H 05/31/18 07:20 Carbon Dioxide 25 mmol/L (21-32) 05/31/18 07:20 Anion Gap 9 (8-16) 05/31/18 07:20 BUN 14 mg/dL (7-18) 05/31/18 07:20 Creatinine 1.0 mg/dL (0.7-1.3) 05/31/18 07:20 Creat Clearance w eGFR > 60 (>60) 05/31/18 07:20 Random Glucose 77 mg/dL (74-106) 05/31/18 07:20 Calcium 8.8 mg/dL (8.5-10.1) 05/31/18 07:20 Total Bilirubin 0.6 mg/dL (0.2-1.0) 05/31/18 07:20 AST 9 U/L (15-37) L D 05/31/18 07:20 ALT 19 U/L (12-78) D 05/31/18 07:20 Alkaline Phosphatase 81 U/L (45-117) 05/31/18 07:20 Total Protein 6.3 g/dl (6.4-8.2) L 05/31/18 07:20 Albumin 3.2 g/dl (3.4-5.0) L 05/31/18 07:20 Urine Color Yellow 05/31/18 07:40 Urine Appearance Turbid 05/31/18 07:40 Urine pH 5.0 (5.0-8.0) 05/31/18 07:40 Ur Specific [place] 1.029 (1.001-1.035) 05/31/18 07:40 Urine Protein Negative (NEGATIVE) 05/31/18 07:40 Urine Glucose (UA) Negative (NEGATIVE) 05/31/18 07:40 Urine Ketones Trace (NEGATIVE) H 05/31/18 07:40 Urine Blood Negative (NEGATIVE) 05/31/18 07:40 Urine Nitrite Negative (NEGATIVE) 05/31/18 07:40 Urine Bilirubin Negative (<2.0 mg/dL) 05/31/18 07:40 Urine Urobilinogen 4.0 e.u/dl mg/dL (0.2-1.0) 05/31/18 07:40 Ur Leukocyte Esterase Negative (NEGATIVE) 05/31/18 07:40 RPR Titer Nonreactive (NONREACTIVE) 05/31/18 07:20 HIV 1&2 Antibody Screen Negative 05/31/18 07:20 HIV P24 Antigen Negative 05/31/18 07:20 Vital Signs - 24 hr 05/30/18 05/31/18 05/31/18 18:41 00:37 03:30 Temperature 97.6 F Pulse Rate 66 Respiratory 18 18 18 Rate Blood Pressure 132/75 05/31/18 05/31/18 05/31/18 07:36 13:32 15:19 Temperature 97.7 F 96.9 F L 97.7 F Pulse Rate 60 65 55 L Respiratory 18 18 17 Rate Blood Pressure 96/60 110/68 95/50 Labs reviewed. 05/31/18 18:16 Assessment: 05/31/18 18:17 Alcohol withdrawal Plan: Continue detox protocol.
--- NOTE | 2018-05-31 19:23 | EKG ---
Test Reason : Blood Pressure : / mmHG Vent. Rate : 063 BPM Atrial Rate : 063 BPM P-R Int : 188 ms QRS Dur : 118 ms QT Int : 396 ms P-R-T Axes : 080 093 074 degrees QTc Int : 405 ms NORMAL SINUS RHYTHM WITH SINUS ARRHYTHMIA RIGHTWARD AXIS NON-SPECIFIC INTRA-VENTRICULAR CONDUCTION DELAY BORDERLINE ECG Confirmed by MD DIRK, RONY ([id number]) on 05/31/2018 7:22:37 PM Referred By: Confirmed By:RONY CAVAZOS MD
[2018-05-31] MEDS: THIAMINE HCL 100 MG TABLET (FP) PO SCH (22:44)
[2018-06-01] MEDS: chlordiazePOXIDE HCL 25 MG CAPSULE PO SCH ×2 (07:06→14:10)
--- NOTE | 2018-06-01 13:05 | PN ---
S CIWA - CIWA Score Nausea/Vomitin Muscle Tremors: 3 Anxiety: 3 Agitation: 2 Paroxysmal Sweats: 1-Minimal Palms Moist Orientation: 0-Oriented Tacttile Disturbances: 1-Very Mild Itch/Numbness Auditory Disturbances: 1-Very Mild Visual Disturbances: 0-None Headache: 2-Mild CIWA-Ar Total Score: 16 BHS Progress Note (SOAP) Subjective: alert,irritable,anxious,interrupted sleep,pain in the body Objective: 06/01/18 13:03 Vital Signs Temperature 97.9 F 06/01/18 11:06 Pulse Rate 54 L 06/01/18 11:06 Respiratory Rate 18 06/01/18 11:06 Blood Pressure 95/56 06/01/18 11:06 O2 Sat by Pulse Oximetry (%) Laboratory Last Values WBC 12.8 K/mm3 (4.0-10.0) H 05/31/18 07:20 RBC 4.20 M/mm3 (4.00-5.60) 05/31/18 07:20 Hgb 13.2 GM/dL (11.7-16.9) 05/31/18 07:20 Hct 39.2 % (35.4-49) 05/31/18 07:20 MCV 93.2 fl (80-96) 05/31/18 07:20 MCH 31.5 pg (25.7-33.7) 05/31/18 07:20 MCHC 33.8 g/dl (32.0-35.9) 05/31/18 07:20 RDW 14.7 % (11.9-15.9) 05/31/18 07:20 Plt Count 268 K/MM3 (134-434) 05/31/18 07:20 MPV 8.8 fl (7.5-11.1) 05/31/18 07:20 Sodium 144 mmol/L (136-145) 05/31/18 07:20 Potassium 4.6 mmol/L (3.5-5.1) 05/31/18 07:20 Chloride 110 mmol/L (98-107) H 05/31/18 07:20 Carbon Dioxide 25 mmol/L (21-32) 05/31/18 07:20 Anion Gap 9 (8-16) 05/31/18 07:20 BUN 14 mg/dL (7-18) 05/31/18 07:20 Creatinine 1.0 mg/dL (0.7-1.3) 05/31/18 07:20 Creat Clearance w eGFR > 60 (>60) 05/31/18 07:20 Random Glucose 77 mg/dL (74-106) 05/31/18 07:20 Calcium 8.8 mg/dL (8.5-10.1) 05/31/18 07:20 Total Bilirubin 0.6 mg/dL (0.2-1.0) 05/31/18 07:20 AST 9 U/L (15-37) L D 05/31/18 07:20 ALT 19 U/L (12-78) D 05/31/18 07:20 Alkaline Phosphatase 81 U/L (45-117) 05/31/18 07:20 Total Protein 6.3 g/dl (6.4-8.2) L 05/31/18 07:20 Albumin 3.2 g/dl (3.4-5.0) L 05/31/18 07:20 Urine Color Yellow 05/31/18 07:40 Urine Appearance Turbid 05/31/18 07:40 Urine pH 5.0 (5.0-8.0) 05/31/18 07:40 Ur Specific [place] 1.029 (1.001-1.035) 05/31/18 07:40 Urine Protein Negative (NEGATIVE) 05/31/18 07:40 Urine Glucose (UA) Negative (NEGATIVE) 05/31/18 07:40 Urine Ketones Trace (NEGATIVE) H 05/31/18 07:40 Urine Blood Negative (NEGATIVE) 05/31/18 07:40 Urine Nitrite Negative (NEGATIVE) 05/31/18 07:40 Urine Bilirubin Negative (<2.0 mg/dL) 05/31/18 07:40 Urine Urobilinogen 4.0 e.u/dl mg/dL (0.2-1.0) 05/31/18 07:40 Ur Leukocyte Esterase Negative (NEGATIVE) 05/31/18 07:40 RPR Titer Nonreactive (NONREACTIVE) 05/31/18 07:20 HIV 1&2 Antibody Screen Negative 05/31/18 07:20 HIV P24 Antigen Negative 05/31/18 07:20 Assessment: 06/01/18 13:04 withdrawal symptom Plan: continue detox,encourage oral fluid,wbc 12,700,will repeat cbc in am
[2018-06-01] MEDS: NICOTINE 21 MG/24 HOURS TOPICAL PATCH TD SCH (14:10)
[2018-06-01] MEDS: PRENATAL VITAMINS W/ FOLIC ACID TABLET (FP) PO SCH (14:10)
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
[2018-06-01 14:55] VITALS: BP 108/65; PULSE 91; TEMP 97
--- NOTE | 2018-06-01 15:26 | PN ---
[facility] Progress Note Note: alert,oriented x 3,seen by dr oliva psychiatrist,no suicidal,no homicidal, would like to leave detox, stated he is doing well and like to go to outpatient program, all attempts to convince patient to stay with no avail,risk of withdrawal and relapsing explained patient signed release ama,no suicidal,no homicidal ideation
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
[2018-06-01] MEDS ORDERED: chlordiazePOXIDE 5 MG CAPSULE PO SCH (23:00)
[2018-06-02] MEDS ORDERED: chlordiazePOXIDE HCL 10 MG CAPSULE PO SCH (23:00)
== END 2018-06-01 16:00 | disposition left against medical advice (07) | DRG 770 ==
LOC: YASAS 15:29 → Y6N 17:37
PROVIDERS: ADMIT Surgery; ATTEND Surgery
PROC: HZ2ZZZZ Detoxification Services for Substance Abuse Treatment (ICD-10-PCS; principal; 2018-05-30)
DX: F10.230 Alcohol dependence with withdrawal, uncomplicated (principal); F14.20 Cocaine dependence, uncomplicated; F12.20 Cannabis dependence, uncomplicated; F17.213 Nicotine dependence, cigarettes, with withdrawal; F41.8 Other specified anxiety disorders; F19.24 Other psychoactive substance dependence with psychoactive substance-induced mood disorder; J45.20 Mild intermittent asthma, uncomplicated; G47.00 Insomnia, unspecified; Z91.010 Allergy to peanuts; Z88.5 Allergy status to narcotic agent; Z87.828 Personal history of other (healed) physical injury and trauma; Z87.898 Personal history of other specified conditions
CPT/HCPCS: 36415; 80053; 81003; 85027; 86593; 87389; 93005; 93010

== ENCOUNTER 2019-01-26 11:24 | Inpatient (IN) | payer OTHER ==
[2019-01-26 14:07] VITALS: BMI 20.5
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
[2019-01-26] MEDS ORDERED: chlordiazePOXIDE HCL 25 MG CAPSULE PO PRN (14:49)
[2019-01-26] MEDS ORDERED: MAGNESIUM HYDROX 2400MG/30ML ORAL SUSPENSION 30 ML CUP PO PRN (14:50)
[2019-01-26] MEDS ORDERED: MELATONIN 5 MG TABLETS PO PRN (14:50)
[2019-01-26] MEDS ORDERED: BISMUTH SUBSALICYLATE 262 MG/15 ML BTL PO PRN (14:50)
[2019-01-26] MEDS ORDERED: IBUPROFEN 400 MG TABLET (FP) PO PRN (14:50)
[2019-01-26] MEDS ORDERED: ACETAMINOPHEN 325 MG TABLET (FP) PO PRN ×2 (14:50)
[2019-01-26] MEDS ORDERED: MAGNESIUM CITRATE 300 ML BOTTLE PO PRN (14:50)
[2019-01-26] MEDS ORDERED: MENTHOL/PHENOL 1 EACH UD MM PRN (14:50)
[2019-01-26] MEDS ORDERED: hydrOXYzine PAMOATE 25 MG CAPSULE (FP) PO PRN (14:50)
[2019-01-26] MEDS ORDERED: METHOCARBAMOL 500 MG TABLET PO PRN (14:50)
[2019-01-26] MEDS ORDERED: MAG HYDROX/AL HYDROX/SIMETH 30 ML UNIT-DOSE CUP PO PRN (14:50)
[2019-01-26] MEDS ORDERED: ALBUTEROL SO4 8 GM HFA INHALER IH PRN (14:57)
[2019-01-26] MEDS ORDERED: ALBUTEROL SO4 2.5/IPRATROPIUM 0.5 INH SOL 3 ML VIAL.NEB. NEB PRN (14:58)
[2019-01-26] MEDS: NICOTINE 21 MG/24 HOURS TOPICAL PATCH TD SCH (15:33)
--- NOTE | 2019-01-26 16:58 | CONSULT ---
[facility] Psychiatric Consult - Data Date of interview: 01/26/19 Admission source: [facility] Identifying data: Patient is approached at bedside for the psychiatric interview. " I don't need psychiatrists ". Mr Moctezuma III declines interview.
[2019-01-26 17:06] LABS: HEMATOCRIT 42.5 % (35.4-49); HEMOGLOBIN 14.1 GM/dL (11.7-16.9); MCH 31.6 pg (25.7-33.7); MCHC 33.2 g/dl (32.0-35.9); MEAN CELL VOLUME 95.1 fl (80-96); MEAN PLT VOLUME 8.3 fl (7.5-11.1); PLATELET COUNT 296 K/MM3 (134-434); RBC 4.47 M/mm3 (4.00-5.60); RDW 15.2 % (11.9-15.9); WHITE BLOOD COUNT 9.7 K/mm3 (4.0-10.0)
[2019-01-26 17:22] LABS: ALBUMIN 3.5 g/dl (3.4-5.0); ALK PHOS 107 U/L (45-117); ANION GAP 2 MMOL/L (8-16); BILIRUBIN,TOTAL 0.8 mg/dL (0.2-1); BLOOD UREA NITROGEN 15 mg/dL (7-18); CALCIUM 9.3 mg/dL (8.5-10.1); CHLORIDE 108 mmol/L (98-107); CO2 29 mmol/L (21-32); CREATININE 0.9 mg/dL (0.55-1.3); GLUCOSE,RANDOM 106 mg/dL (74-106); POTASSIUM 4.3 mmol/L (3.5-5.1); SGOT/AST 11 U/L (15-37); SGPT/ALT 14 U/L (13-61); SODIUM 139 mmol/L (136-145); TOT PROT 7.1 g/dl (6.4-8.2)
[2019-01-26] MEDS: chlordiazePOXIDE HCL 25 MG CAPSULE PO SCH ×2 (17:36→22:27)
[2019-01-26] MEDS ORDERED: THIAMINE HCL 100 MG TABLET (FP) PO SCH (22:00)
[2019-01-27 06:11] VITALS: BP 100/55; PULSE 48; TEMP 97.6
[2019-01-27] MEDS: chlordiazePOXIDE HCL 25 MG CAPSULE PO SCH ×2 (06:41→11:47)
[2019-01-27 08:36] LABS: URINE APPEARANCE CLEAR; URINE BILIRUBIN NEGATIVE (NEGATIVE); URINE COLOR DK YELLOW; URINE GLUCOSE (UA) NEGATIVE (NEGATIVE); URINE KETONE NEGATIVE (NEGATIVE); URINE LEUK ESTERASE NEGATIVE (NEGATIVE); URINE NITRITE NEGATIVE (NEGATIVE); URINE PROTEIN NEGATIVE (NEGATIVE)
[2019-01-27] MEDS ORDERED: PRENATAL VITAMINS W/ FOLIC ACID TABLET (FP) PO SCH (10:00)
[2019-01-27] MEDS: NICOTINE 21 MG/24 HOURS TOPICAL PATCH TD SCH (10:47)
--- NOTE | 2019-01-27 15:21 | PN ---
S CIWA - CIWA Score Nausea/Vomitin-Mild Nausea/No Vomiting Muscle Tremors: 3 Anxiety: 3 Agitation: 3 Paroxysmal Sweats: 1-Minimal Palms Moist Orientation: 0-Oriented Tacttile Disturbances: 0-None Auditory Disturbances: 4-Moderate Hallucination Visual Disturbances: 0-None Headache: 1-Very Mild CIWA-Ar Total Score: 16 S Progress Note (SOAP) Subjective: observed patient lying on bed taking to self "I am ok" patient does not want o
--- NOTE | 2019-01-27 15:58 | DS ---
[facility] Detox Discharge Summary Admission Date: 01/26/19 Discharge Date: 01/27/19 - History Present History: Alcohol Dependence Additional Comments: 48 years old male admitted on 01/26/19 for alcohol withdrawal stabilizatin insists to leave the unit that something to do patient is alert no acute distress denies suicidal ideation aftercare encourage the patient to join 12 step self help group Pertinent Past History: bring in medication list and lab report to after care follow up - Physical Exam Results Vital Signs: Vital Signs Temperature 97.6 F 01/27/19 06:10 Pulse Rate 48 L 01/27/19 06:10 Respiratory Rate 18 01/27/19 06:10 Blood Pressure 100/55 L 01/27/19 06:10 O2 Sat by Pulse Oximetry (%) Pertinent Admission Physical Exam Findings: alcohol withdrawal sx Laboratory Last Values WBC 9.7 K/mm3 (4.0-10.0) 01/26/19 14:45 RBC 4.47 M/mm3 (4.00-5.60) 01/26/19 14:45 Hgb 14.1 GM/dL (11.7-16.9) 01/26/19 14:45 Hct 42.5 % (35.4-49) 01/26/19 14:45 MCV 95.1 fl (80-96) 01/26/19 14:45 MCH 31.6 pg (25.7-33.7) 01/26/19 14:45 MCHC 33.2 g/dl (32.0-35.9) 01/26/19 14:45 RDW 15.2 % (11.9-15.9) 01/26/19 14:45 Plt Count 296 K/MM3 (134-434) 01/26/19 14:45 MPV 8.3 fl (7.5-11.1) 01/26/19 14:45 Sodium 139 mmol/L (136-145) 01/26/19 14:45 Potassium 4.3 mmol/L (3.5-5.1) 01/26/19 14:45 Chloride 108 mmol/L (98-107) H 01/26/19 14:45 Carbon Dioxide 29 mmol/L (21-32) 01/26/19 14:45 Anion Gap 2 MMOL/L (8-16) L 01/26/19 14:45 BUN 15 mg/dL (7-18) 01/26/19 14:45 Creatinine 0.9 mg/dL (0.55-1.3) 01/26/19 14:45 Creat Clearance w eGFR 90.45 (>60) 01/26/19 14:45 Random Glucose 106 mg/dL (74-106) 01/26/19 14:45 Calcium 9.3 mg/dL (8.5-10.1) 01/26/19 14:45 Total Bilirubin 0.8 mg/dL (0.2-1) 01/26/19 14:45 AST 11 U/L (15-37) L 01/26/19 14:45 ALT 14 U/L (13-61) 01/26/19 14:45 Alkaline Phosphatase 107 U/L (45-117) 01/26/19 14:45 Total Protein 7.1 g/dl (6.4-8.2) 01/26/19 14:45 Albumin 3.5 g/dl (3.4-5.0) 01/26/19 14:45 Urine Color Dk yellow 01/27/19 00:00 Urine Appearance Clear 01/27/19 00:00 Urine pH 6.0 (5.0-8.0) 01/27/19 00:00 Ur Specific [place] 1.023 (1.010-1.035) 01/27/19 00:00 Urine Protein Negative (NEGATIVE) 01/27/19 00:00 Urine Glucose (UA) Negative (NEGATIVE) 01/27/19 00:00 Urine Ketones Negative (NEGATIVE) 01/27/19 00:00 Urine Blood Negative (NEGATIVE) 01/27/19 00:00 Urine Nitrite Negative (NEGATIVE) 01/27/19 00:00 Urine Bilirubin Negative (NEGATIVE) 01/27/19 00:00 Urine Urobilinogen 1.0 mg/dL (0.2-1.0) 01/27/19 00:00 Ur Leukocyte Esterase Negative (NEGATIVE) 01/27/19 00:00 RPR Titer Nonreactive (NONREACTIVE) 01/26/19 14:45 HIV 1&2 Antibody Screen Negative 01/26/19 14:45 HIV P24 Antigen Negative 01/26/19 14:45 lab noted - Treatment Hospital Course: Detox Protocol Followed, Responded well Patient has Accepted a Rehab Referral to: 12 step self group - Medication Discharge Medications: Ambulatory Orders Albuterol Sulfate Inhaler - [Ventolin HFA Inhaler -] 2 puff IH Q4H PRN #1 inhaler 06/01/18 - Diagnosis (1) Alcohol dependence with uncomplicated withdrawal Current Visit: Yes Status: Acute (2) Nicotine dependence Current Visit: Yes Status: Acute Qualifiers: Nicotine product type: cigarettes Substance use status: in withdrawal Qualified Code(s): F17.213 - Nicotine dependence, cigarettes, with withdrawal (3) Substance induced mood disorder Current Visit: Yes Status: Suspected (4) Weight loss Current Visit: Yes Status: Acute (5) Asthma Current Visit: Yes Status: Chronic Qualifiers: Asthma severity: mild Asthma persistence: intermittent Asthma complication type: uncomplicated Qualified Code(s): J45.20 - Mild intermittent asthma, uncomplicated (6) Schizoaffective disorder Current Visit: Yes Status: Suspected Qualifiers: Schizoaffective disorder type: unspecified Qualified Code(s): F25.9 - Schizoaffective disorder, unspecified - AMA Did Patient Leave Against Medical Advice: Yes
[2019-01-27] MEDS ORDERED: chlordiazePOXIDE HCL 25 MG CAPSULE PO SCH (17:00)
[2019-01-28] MEDS ORDERED: chlordiazePOXIDE HCL 10 MG CAPSULE PO PRN (17:00)
[2019-01-28] MEDS ORDERED: chlordiazePOXIDE HCL 10 MG CAPSULE PO SCH (17:00)
[2019-01-29] MEDS ORDERED: chlordiazePOXIDE HCL 10 MG CAPSULE PO SCH (17:00)
== END 2019-01-27 16:51 | disposition left against medical advice (07) | DRG 770 ==
LOC: YASAS 11:24 → Y3N 14:49
PROVIDERS: ADMIT Surgery; ATTEND Surgery
PROC: HZ2ZZZZ Detoxification Services for Substance Abuse Treatment (ICD-10-PCS; principal; 2019-01-26)
DX: F10.230 Alcohol dependence with withdrawal, uncomplicated (principal); F14.20 Cocaine dependence, uncomplicated; F12.20 Cannabis dependence, uncomplicated; F17.213 Nicotine dependence, cigarettes, with withdrawal; F25.9 Schizoaffective disorder, unspecified; F19.24 Other psychoactive substance dependence with psychoactive substance-induced mood disorder; J45.20 Mild intermittent asthma, uncomplicated; E86.0 Dehydration; R63.4 Abnormal weight loss; Z68.20 Body mass index [BMI] 20.0-20.9, adult
CPT/HCPCS: 36415; 80053; 81003; 85027; 86593; 87389